=== PATIENT | female | born 1960 | race Asian ===

== ENCOUNTER 2023-01-07 17:57 | Emergency (ER) | payer OTHER ==
[~2023-01-07] VITALS: Ht 165.1 cm; Wt 75.0 kg
[2023-01-07 18:08] VITALS: O2SAT 98
[2023-01-07 19:20] LABS: CLARITY URINE CLEAR (CLEAR); COLOR URINE YELLOW (YELLOW); GLUCOSE URINE NEGATIVE (NEGATIVE); KETONES URINE TRACE (NEGATIVE); LEUKOCYTE ESTERASE URINE NEGATIVE (NEGATIVE); NITRITE URINE NEGATIVE (NEGATIVE); OCCULT BLOOD URINE 1+ (NEGATIVE); PROTEIN URINE NEGATIVE (NEGATIVE); SPECIFIC GRAVITY URINE 1.006 (1.005-1.030); UROBILINOGEN URINE 0.2 E.U./dL (0.2-1.0)
[2023-01-07 19:24] LABS: BACTERIA URINE NONE SEEN; SQUAMOUS EPITHELIAL CELL URINE NONE SEEN /lpf (RARE/1+); WBC URINE NONE SEEN /hpf (0-2); YEAST URINE NONE SEEN
[2023-01-07 19:56] LABS: BASOPHILS % 0.4 % (0.0-2.0); EOSINOPHILS % 0.1 % (0.0-5.0); HEMATOCRIT. 42.8 % (36.0-48.0); HEMOGLOBIN. 14.2 g/dL (12.0-16.0); LYMPHOCYTES % 9.2 % (20.0-50.0); MEAN CORPUSCULAR HEMOGLOBIN 30.9 pg (28.0-32.0); MEAN CORPUSCULAR HGB CONC 33.2 g/dL (31.0-37.0); MEAN PLATELET VOLUME 8.8 fl (7.4-10.4); MONOCYTES % 3.3 % (2.0-8.0); PLATELET 286 x1000/uL (130-400); RED CELL DISTRIBUTION WIDTH 13.3 % (11.6-14.6); WHITE BLOOD COUNT 12.7 x1000/uL (4.5-11.0)
[2023-01-07 20:08] LABS: CHLORIDE 102 mEq/L (98-107); INDEX HEMOLYSI 3 (1-3); INDEX ICTERIC 1 (1-4); INDEX LIPEMIC 1 (1-3); POTASSIUM 3.4 mEq/L (3.5-5.1); SODIUM 134 mEq/L (136-145)
[2023-01-07 20:27] LABS: ALANINE AMINOTRANSFERASE 23 IU/L (13-61); ALBUMIN 3.2 g/dL (3.4-5.0); ASPARTATE AMINOTRANSFERASE 23 IU/L (15-37); BILIRUBIN TOTAL 0.5 mg/dL (0.1-1.0); CALCIUM 8.3 mg/dL (8.5-10.1); CARBON DIOXIDE 25 mEq/L (21-32); CREATININE 0.5 mg/dL (0.6-1.3); GLUCOSE 90 mg/dL (70-105); PROTEIN TOTAL 8.1 g/dL (6.0-8.3); UREA NITROGEN BLOOD 7 mg/dL (7-21)
[2023-01-07] MEDS ORDERED: ONDANSETRON 4MG ODT PO ONE (21:45)
[2023-01-07] MEDS ORDERED: FAMOTIDINE 20MG TABLET PO ONE (21:45)
[2023-01-07] MEDS ORDERED: ACETAMINOPHEN 500MG TABLET PO ONE (21:45)
[2023-01-07 22:03] LABS: RBC URINE 0-2 /hpf (0-2)
[2023-01-08] MEDS ORDERED: FAMO-135 MT (02:05)
[2023-01-08 02:10] VITALS: BP 117/80; PULSE 91; RESP 18; TEMP 98.6
== END 2023-01-08 02:14 | disposition home or self-care (01) ==
LOC: ER 18:22
DX: R10.13 Epigastric pain (principal); R19.7 Diarrhea, unspecified
CPT/HCPCS: 36415; 74181; 76705; 80053; 81003; 85025; 93005; 99284